=== PATIENT | male | born 1985 | race Caucasian/White ===

== ENCOUNTER 2019-12-16 15:01 | Inpatient (IN) | payer MEDICAID ==
[~2019-12-16] VITALS: Ht 185.4 cm; Wt 72.6 kg
--- NOTE | 2019-12-16 15:25 | NUR ---
PATIENT WAS MSE BY DR BRADFORD IN ROOM 05A. PATIENT A & O X3.
[2019-12-16] MEDS ORDERED: VANCOMYCIN IV 1,000 MG in IV DEXTROSE 5% 250 ML IV ONE (15:30)
[2019-12-16] MEDS ORDERED: CEFTRIAXONE 1 G in IV DEXTROSE 5% 50 ML IV ONE (15:30)
[2019-12-16] MEDS ORDERED: KETOROLAC TROMETHAMINE 30 MG INJ IVP ONE (15:30)
[2019-12-16] MEDS ORDERED: IV NORMAL SALINE 1000 ML BAG IV ONE (15:30)
[2019-12-16] MEDS ORDERED: GABAPENTIN 300 MG CAPSULE PO ONE (15:30)
[2019-12-16] MEDS ORDERED: VANCOMYCIN IV 200 ML ONE (15:38)
[2019-12-16] MEDS ORDERED: GABAPENTIN 300 MG CAPSULE ONE (15:38)
[2019-12-16] MEDS ORDERED: KETOROLAC TROMETHAMINE 30 MG INJ ONE (15:38)
[2019-12-16] MEDS ORDERED: CEFTRIAXONE /D5W 50ML IVPB **ER PYXIS IV ONE (15:39)
[2019-12-16 16:21] LABS: HEMATOCRIT 33.3 % (36.7-47.1); HEMOGLOBIN 11.3 g/dL (12.5-16.3); MEAN CORPUSCULAR HEMOGLOBIN 28.2 uug (23.8-33.4); MEAN CORPUSCULAR HGB CONC 34 g/dL (32.5-36.3); MEAN CORPUSCULAR VOLUME 83.5 fL (73.0-96.2); RED BLOOD CELL COUNT(AUTO) 3.99 MIL/uL (4.06-5.63); WHITE BLOOD COUNT (AUTO) 7.6 K/uL (3.6-10.2)
[2019-12-16 16:27] LABS: CARBON DIOXIDE 26 mmol/L (21-32); CHLORIDE 98 mmol/L (98-107); CREATININE 0.7 mg/dL (0.6-1.3); GLUCOSE 121 mg/dL (74-106); POTASSIUM 3.7 mmol/L (3.5-5.1); UREA NITROGEN, BLOOD 11 mg/dL (7-18)
[2019-12-16 16:31] LABS: LYMPHOCYTES % (AUTO) 18.2 % (20.5-51.5); MONOCYTES % (AUTO) 14.7 % (0.0-11.0); NEUTROPHILS % (AUTO) 62.1 % (38.5-71.5)
[2019-12-16 16:32] LABS: ALANINE AMINOTRANSFERASE 61 U/L (16-63); ALKALINE PHOSPHATASE 73 U/L (50-136); ASPARTATE AMINOTRANSFERASE 38 U/L (15-37); BASOPHILS # (AUTO) 0.1 K/uL (0.0-8.0); BASOPHILS % (AUTO) 0.8 % (0.0-2.0); BILIRUBIN,DIRECT 0.1 mg/dL (0.0-0.2); BILIRUBIN,TOTAL 0.7 mg/dL (0.2-1.0); EOSINOPHILS # (AUTO) 0.3 K/uL (0.0-0.7); EOSINOPHILS % (AUTO) 4.2 % (0.0-7.0); LYMPHOCYTES # (AUTO) 1.4 K/uL (20.0-40.0); MONOCYTES # (AUTO) 1.1 K/uL (2.0-10.0); NEUTROPHILS # (AUTO) 4.7 K/uL (1.8-8.9); TOTAL PROTEIN, SERUM 6.5 g/dL (6.4-8.2)
[2019-12-16 16:48] LABS: BAND % (MANUAL) 4 % (0-10); EOSINOPHILS % (MANUAL) 5 % (0-8); LYMPHOCYTES % (MANUAL) 15 % (20-40); MONOCYTES % (MANUAL) 14 % (2-10); NEUTROPHILS % (MANUAL) 62 % (42-75); PLATELET COUNT (AUTO) 114 K/uL (152-348)
--- NOTE | 2019-12-16 16:50 | NUR ---
DR BRADFORD SPOKE WITH [facility] ACCEPTED PATIENT FOR ADMISSION.
[2019-12-16 17:50] VITALS: BP 107/60
[2019-12-16] MEDS ORDERED: ZOLPIDEM 5 MG TABLET PO PRN (18:15)
[2019-12-16] MEDS ORDERED: MAGNESIUM HYDROXIDE 30 ML LIQUID UDC PO PRN (18:15)
[2019-12-16] MEDS ORDERED: LORAZEPAM 2 MG/1 ML VIAL IV PRN (18:15)
[2019-12-16] MEDS ORDERED: MORPHINE SULFATE 2 MG/1 ML DISP.SYRIN IV PRN (18:15)
[2019-12-16] MEDS ORDERED: ACETAMINOPHEN 325 MG TABLET PO PRN (18:15)
[2019-12-16] MEDS ORDERED: ONDANSETRON 4 MG/2 ML VIAL IV PRN (18:15)
--- NOTE | 2019-12-16 18:26 | NUR ---
CLINICAL PHARMACY NOTE: VANCOMYCIN PHARMACY TO DOSE Subjective: To start vancomycin in this 34 y/o male for indication of cellulitis Objective: weight 72.5kg height 185cm BUN/SCr 11/0.7 wbc 7.6 temp 99.8 1gm vanco given in ER 12/15 @1520 Assessment/Plan As renal function appears stable, will start regimen of vancomycin 1250mg q9h for estimated trough of 14.98, first dose tonight at 2100. Will check trough before 4th scheduled dose (not ordered yet). Will follow and adjust per renal fxn as well.
--- NOTE | 2019-12-16 18:34 | NUR ---
PATIENT S/P ADMISSION FOR RIGHT LOWER CELLULITIS AROUND 530PM FROM ER WITH NURSE VIA STRETCHER. SWELLING NOTED ON RIGHT LEG.SLIGHT REDNESS NOTED. PATIENT REFUSE SKIN CHECK. VERBALIZE TO DO IT LATER. HISTORY OF SUBSTANCE USE AND SMOKER. NEGATIVE CHEST XRAY RESULT AND NEGATIVE DVT IN GLORIA RESULT IN ER. LAB NURSE AMIE AWARE. PATIENT WAS INTERVIEWED AND VERBALIZE HE CANNOT WALK. WILL START IV ATB FOR CELLULITIS. IV SITE- RIGHT SHOULDER G22. NOT IN DISTRESS. WILL CONTINUE MONITOR
[2019-12-16] MEDS: NICOTINE 14 MG/24HR PATCH TD SCH (19:09)
[2019-12-16] MEDS: IV 1/2NS 1000 ML 1,000 ML IV PRN ×2 (19:51→20:09)
[2019-12-16] MEDS: VANCOMYCIN IV 1,250 MG in IV DEXTROSE 5% 250 ML IV SCH (20:09)
[2019-12-16] MEDS: ENOXAPARIN SODIUM 40 MG/0.4 ML DISP.SYRIN SQ SCH (20:10)
[2019-12-16 20:14] VITALS: BP 112/59
[2019-12-16] MEDS: HYDROCODONE/APAP 5-325MG TABLET PO PRN (20:40)
[2019-12-16] MEDS: PIPERACILLIN SODIUM/TAZOBACTAM 3.375 G in IV DEXTROSE 5% 50 ML IV SCH (22:34)
[2019-12-17] MEDS: PIPERACILLIN SODIUM/TAZOBACTAM 3.375 G in IV DEXTROSE 5% 50 ML IV SCH ×3 (05:15→21:48)
[2019-12-17] MEDS: VANCOMYCIN IV 1,250 MG in IV DEXTROSE 5% 250 ML IV SCH ×3 (05:58→21:46)
[2019-12-17] MEDS: HYDROCODONE/APAP 5-325MG TABLET PO PRN ×2 (05:58→20:36)
[2019-12-17 06:29] LABS: HEMATOCRIT 33.1 % (36.7-47.1); RED BLOOD CELL COUNT(AUTO) 3.86 MIL/uL (4.06-5.63); WHITE BLOOD COUNT (AUTO) 6.3 K/uL (3.6-10.2)
[2019-12-17 06:30] LABS: BASOPHILS # (AUTO) 0.1 K/uL (0.0-8.0); BASOPHILS % (AUTO) 1.3 % (0.0-2.0); EOSINOPHILS # (AUTO) 0.4 K/uL (0.0-0.7); EOSINOPHILS % (AUTO) 6.2 % (0.0-7.0); LYMPHOCYTES # (AUTO) 1.4 K/uL (20.0-40.0); LYMPHOCYTES % (AUTO) 22.1 % (20.5-51.5); MEAN CORPUSCULAR HEMOGLOBIN 28.5 uug (23.8-33.4); MEAN CORPUSCULAR HGB CONC 33 g/dL (32.5-36.3); MEAN CORPUSCULAR VOLUME 85.8 fL (73.0-96.2); MONOCYTES % (AUTO) 15.3 % (0.0-11.0); NEUTROPHILS # (AUTO) 3.5 K/uL (1.8-8.9); NEUTROPHILS % (AUTO) 55.1 % (38.5-71.5); PLATELET COUNT (AUTO) 260 K/uL (152-348)
[2019-12-17 06:46] LABS: BILIRUBIN,TOTAL 0.7 mg/dL (0.2-1.0); MAGNESIUM 1.8 mg/dL (1.8-2.4); PHOSPHOROUS 4.5 mg/dL (2.5-4.9); POTASSIUM 4.3 mmol/L (3.5-5.1); TOTAL PROTEIN, SERUM 6.1 g/dL (6.4-8.2)
[2019-12-17 06:56] LABS: THYROID STIMULATING HORMONE 1.565 mIU/mL (0.358-3.740)
--- NOTE | 2019-12-17 07:15 | NUR ---
Received patient in bed asleep but arousable to name. On room air with no SOB. IV ESTELITA 22g clean and intact Vanco still infusing. Bilateral hand swelling and redness noted. Right lower extremity redness and swelling also noted. [place] given by manufacturing supervisor 2nd shift nurse for complaints of right leg pain, effective with 2/10 pain now. No other complaints for now. Call light within reach. Bed locked in lowest position with siderails 2x up. Will continue to monitor.
[2019-12-17 07:40] LABS: BAND % (MANUAL) 3 % (0-10); EOSINOPHILS % (MANUAL) 4 % (0-8); LYMPHOCYTES % (MANUAL) 28 % (20-40); MONOCYTES % (MANUAL) 14 % (2-10); NEUTROPHILS % (MANUAL) 51 % (42-75)
[2019-12-17 08:00] VITALS: BP 111/53
[2019-12-17] MEDS: NICOTINE 14 MG/24HR PATCH TD SCH (08:14)
[2019-12-17] MEDS: GABAPENTIN 300 MG CAPSULE PO SCH ×3 (08:14→18:00)
--- NOTE | 2019-12-17 09:27 | NUR ---
CLINICAL PHARMACY NOTE: VANCOMYCIN PHARMACY TO DOSE Subjective: To continue vancomycin in this 34 y/o male for indication of cellulitis Objective: weight 72.5kg height 185cm BUN/SCr 15/1.0 wbc 6.3 temp 98 Assessment/Plan Since renal function decreased(scr 1.0 vs 0.7), will change dose to vancomycin 1250mg q12h from 1250mg q9hrs for estimated trough of 15, second dose tonight at 1800. Will check trough before 4th scheduled dose (not ordered yet). Will follow and adjust per renal fxn as well.
--- NOTE | 2019-12-17 10:00 | NUR ---
Patient kept asking for food. After breakfast, asked for ham sandwich, vanilla and chocolate pudding, and coffee with sugar and creamer. Elevated right leg on 2 pillows per MD order. No other complaints for now.
[2019-12-17 12:50] LABS: *BILIRUBIN,URIN NEGATIVE (NEGATIVE); *BLOOD, URINE NEGATIVE (NEGATIVE); *CLARITY,URINE CLEAR (CLEAR); *COLOR,URINE YELLOW (YELLOW); *KETONES,URINE NEGATIVE (NEGATIVE); LEUKOCYTE ESTERASE ,URINE NEGATIVE (NEGATIVE); NITRITE, URINE NEGATIVE (NEGATIVE); UGLUCOSE NEGATIVE (NEGATIVE)
[2019-12-17 12:56] LABS: BACTERIA,URINE NONE SEEN /HPF (NONE SEEN); RBC,URINE 0-3 /HPF (0-3); WBC,URINE 0-3 /HPF (0-3)
[2019-12-17 12:57] LABS: MUCUS,URINE FEW /LPF (0-FEW); SQUAMOUS EPITHELIAL CELL,UR NONE SEEN /HPF (NONE SEEN)
[2019-12-17] MEDS: IV 1/2NS 1000 ML 1,000 ML IV PRN (15:33)
[2019-12-17 16:00] VITALS: BP 101/56
--- NOTE | 2019-12-17 17:45 | NUR ---
Patient's right UA IV was leaking. Checked by KIRSTEN Burnett and IV not patent. IV removed. Patient is a hardstick and multiple IV attempts done and unsuccessful, not able to give Vanco IV for 1800. Pharmacist Scottie notified, will endorse to women's soccer coach. Zbigniew WORKERS COMPENSATION EXAMINER notified and ordered insertion of midline. supervisor sandblaster Maisha martinez.
[2019-12-17] MEDS: ENOXAPARIN SODIUM 40 MG/0.4 ML DISP.SYRIN SQ SCH (20:36)
[2019-12-17 21:00] VITALS: BP 116/75
--- NOTE | 2019-12-17 23:00 | NUR ---
Midline not inserted; PICC line nurse can not come tonight however, New IV to right Upper arm per ER staff Dave; Debby able to give aaround after IV was inserted; will inform pharmacy in AM regarding the time of infusion.
[2019-12-18 04:00] VITALS: BP 110/50
[2019-12-18] MEDS: PIPERACILLIN SODIUM/TAZOBACTAM 3.375 G in IV DEXTROSE 5% 50 ML IV SCH ×3 (05:23→21:15)
[2019-12-18 05:59] LABS: CREATININE 0.9 mg/dL (0.6-1.3); POTASSIUM 4.3 mmol/L (3.5-5.1)
[2019-12-18 06:15] LABS: BASOPHILS # (AUTO) 0.1 K/uL (0.0-8.0); BASOPHILS % (AUTO) 0.9 % (0.0-2.0); EOSINOPHILS # (AUTO) 0.4 K/uL (0.0-0.7); EOSINOPHILS % (AUTO) 6.6 % (0.0-7.0); HEMATOCRIT 33.1 % (36.7-47.1); HEMOGLOBIN 11.1 g/dL (12.5-16.3); LYMPHOCYTES # (AUTO) 1.6 K/uL (20.0-40.0); LYMPHOCYTES % (AUTO) 25.2 % (20.5-51.5); MEAN CORPUSCULAR HEMOGLOBIN 28.4 uug (23.8-33.4); MEAN CORPUSCULAR HGB CONC 34 g/dL (32.5-36.3); MEAN CORPUSCULAR VOLUME 84.6 fL (73.0-96.2); MONOCYTES # (AUTO) 0.9 K/uL (2.0-10.0); MONOCYTES % (AUTO) 14.7 % (0.0-11.0); NEUTROPHILS # (AUTO) 3.3 K/uL (1.8-8.9); NEUTROPHILS % (AUTO) 52.6 % (38.5-71.5); PLATELET COUNT (AUTO) 327 K/uL (152-348); RED BLOOD CELL COUNT(AUTO) 3.91 MIL/uL (4.06-5.63); WHITE BLOOD COUNT (AUTO) 6.2 K/uL (3.6-10.2)
--- NOTE | 2019-12-18 06:20 | NUR ---
Pt rested well in between care; no acute distress; refused bath; pt has a good appetite; tolerated antibiotics; needs attended; safety [id number]; continue to monitor; continue plan of care.
--- NOTE | 2019-12-18 06:38 | NUR ---
CLINICAL PHARMACY NOTE: VANCOMYCIN PHARMACY TO DOSE Subjective: To continue vancomycin in this 34 y/o male for indication of cellulitis Objective: weight 72.5kg height 185cm BUN/SCr 14/0.9 wbc 6.2 temp 98 ht 185 mc wt 72 kg Assessment/Plan Will continue same dose of vancomycin 1250mg IVPB q12h for today. Due to issues with IV line, 1st dose given at 2200 on 12/16. 2nd dose due today at 10am. Will check trough before 4th scheduled dose (not ordered yet). Will follow and adjust per renal fxn as well. Addendum: 12/18/19 at 0640 by MARIA DOLORES BECKER ADM vanco trough level ordered for 12/18 at 0930- pharmacy will review the level & adjust the dose if needed
--- NOTE | 2019-12-18 08:00 | NUR ---
awake alert and oriented, denies of pain, right leg less swollen, elevated on pillows, both hands red and swollen, "pt states it's always like that", explained plan of care- verbalized understanding, needs attended, safety measures maintained, call light within reach
[2019-12-18] MEDS: NICOTINE 14 MG/24HR PATCH TD SCH (08:31)
[2019-12-18] MEDS: GABAPENTIN 300 MG CAPSULE PO SCH ×3 (08:31→16:37)
[2019-12-18] MEDS: VANCOMYCIN IV 1,250 MG in IV DEXTROSE 5% 250 ML IV SCH ×2 (09:52→21:26)
--- NOTE | 2019-12-18 10:00 | NUR ---
refused am care at this time, voiding large amounts, taking fluuids well,
--- NOTE | 2019-12-18 11:30 | NUR ---
Midline nurse here- placed midline G18 on left upper arm- tolerated well
[2019-12-18 12:00] VITALS: BP 115/59
--- NOTE | 2019-12-18 15:00 | NUR ---
shower taken with moderate assistance- tolerated well
[2019-12-18 16:30] VITALS: BP 121/67
[2019-12-18] MEDS: IV 1/2NS 1000 ML 1,000 ML IV PRN (16:38)
--- NOTE | 2019-12-18 17:56 | NUR ---
dozing on and off in between care, all needs attended and met, has large appetite, right leg elevated on pillows, safety measures maintained, call light within reach
[2019-12-18 20:00] VITALS: BP 104/63
[2019-12-18] MEDS: ENOXAPARIN SODIUM 40 MG/0.4 ML DISP.SYRIN SQ SCH (21:15)
[2019-12-19 04:31] VITALS: BP 119/58
[2019-12-19] MEDS: PIPERACILLIN SODIUM/TAZOBACTAM 3.375 G in IV DEXTROSE 5% 50 ML IV SCH ×2 (05:06→14:00)
[2019-12-19 05:49] LABS: CREATININE 0.9 mg/dL (0.6-1.3); POTASSIUM 4.2 mmol/L (3.5-5.1)
[2019-12-19 06:02] LABS: BASOPHILS # (AUTO) 0.1 K/uL (0.0-8.0); BASOPHILS % (AUTO) 1.1 % (0.0-2.0); EOSINOPHILS # (AUTO) 0.4 K/uL (0.0-0.7); EOSINOPHILS % (AUTO) 8.1 % (0.0-7.0); HEMATOCRIT 33.4 % (36.7-47.1); HEMOGLOBIN 10.9 g/dL (12.5-16.3); LYMPHOCYTES # (AUTO) 1.4 K/uL (20.0-40.0); LYMPHOCYTES % (AUTO) 28.1 % (20.5-51.5); MEAN CORPUSCULAR HEMOGLOBIN 27.7 uug (23.8-33.4); MEAN CORPUSCULAR HGB CONC 33 g/dL (32.5-36.3); MONOCYTES # (AUTO) 0.7 K/uL (2.0-10.0); MONOCYTES % (AUTO) 12.7 % (0.0-11.0); NEUTROPHILS # (AUTO) 2.6 K/uL (1.8-8.9); PLATELET COUNT (AUTO) 230 K/uL (152-348); RED BLOOD CELL COUNT(AUTO) 3.93 MIL/uL (4.06-5.63); WHITE BLOOD COUNT (AUTO) 5.1 K/uL (3.6-10.2)
--- NOTE | 2019-12-19 06:19 | NUR ---
Patient slept well. No complaints of pain at this time. Midline on ENE intact and patent w/ IVF infusing. All needs attended. Safety measures in place. Will endorse accordingly
--- NOTE | 2019-12-19 08:00 | NUR ---
Patient noted resting in bed with eyes closed, no facial cues of pain noted at this time, no signs of distress noted, call light in reach, bed locked and in lowest, all needs met at this time
[2019-12-19] MEDS: NICOTINE 14 MG/24HR PATCH TD SCH (08:43)
[2019-12-19] MEDS: GABAPENTIN 300 MG CAPSULE PO SCH ×2 (08:43→13:03)
[2019-12-19] MEDS: VANCOMYCIN IV 1,250 MG in IV DEXTROSE 5% 250 ML IV SCH (11:12)
--- NOTE | 2019-12-19 11:21 | NUR ---
CLINICAL PHARMACY NOTE: VANCOMYCIN PHARMACY TO DOSE Subjective: To continue vancomycin in this 34 y/o male for indication of cellulitis Objective: weight 72.5kg height 185cm BUN/SCr 14/0.9 wbc 5.1 temp 98 ht 185 mc wt 72 kg Vancomycin trough 12/17 at 0930:10.9 Assessment/Plan Since Vancomycin trough is subtherapeutic, will increase dose to 1250mg IV every 10 hrs(first dose given today at 1100) and draw trough by 4th dose(not ordered yet) for expected trough around 15. Will monitor daily.
[2019-12-19 12:48] VITALS: BP 100/64
--- NOTE | 2019-12-19 17:13 | NUR ---
Patient discharge paperwork signed at 1400, patient noted avoiding staff when time to leave hospital, customs brokerage manager and Director Institution notified of patients behavior, patient requested clothing, clothing provided, right AC iv lined discontinued, Left midline discontinued, pictures of bilateral hands and right leg taken, prescriptions given at this time, Tap card given for transportation, discharge instructions given and paper work signed, all belongings accounted for, medication received from pharmacy at this time and given to patient, patient left facility at 1511
[2019-12-19] MEDS ORDERED: VANCOMYCIN IV 1,250 MG in IV DEXTROSE 5% 250 ML IV SCH (21:00)
== END 2019-12-19 17:11 | disposition home or self-care (01) | DRG 383 ==
LOC: ER 15:03 → MEDSURG3 17:05
PROVIDERS: ADMIT Nurse Practitioner Acute Care; ATTEND Nurse Practitioner Acute Care
PROC: 05HY33Z Insertion of Infusion Device into Upper Vein, Percutaneous Approach (ICD-10-PCS; principal; 2019-12-18)
DX: L03.115 Cellulitis of right lower limb (principal); E44.0 Moderate protein-calorie malnutrition; F11.20 Opioid dependence, uncomplicated; F15.20 Other stimulant dependence, uncomplicated; E87.1 Hypo-osmolality and hyponatremia; E88.09 Other disorders of plasma-protein metabolism, not elsewhere classified; L03.113 Cellulitis of right upper limb; Z59.0 Homelessness; L03.114 Cellulitis of left upper limb; D63.8 Anemia in other chronic diseases classified elsewhere; E86.1 Hypovolemia; F17.210 Nicotine dependence, cigarettes, uncomplicated; R73.9 Hyperglycemia, unspecified; Z68.21 Body mass index [BMI] 21.0-21.9, adult; F19.20 Other psychoactive substance dependence, uncomplicated
CPT/HCPCS: 36415; 70030-TC; 71045; 83605; 83735; 84100; 84443; 85025; 85730; 86803; 87040; 87086; 87806; G0378; J0696; J1650; J1885; J2543; J3370; J3490; J7030; J7060